=== PATIENT | female | born 1945 | race Caucasian/White ===

== ENCOUNTER 2017-04-17 21:28 | Inpatient (IN) | payer MEDICARE, OTHER ==
[~2017-04-17] VITALS: Ht 154.9 cm; Wt 96.0 kg
[2017-04-17 22:40] LABS: Basophils # (auto) 0 uL; Basophils % (auto) 0.1 % (0.0-2.0); Eosinophils # (auto) 0 uL; Hematocrit 43.7 % (36.0-46.0); Hemoglobin 14.2 g/dL (12.2-16.2); Lymphocytes # (auto) 1.2 uL; Lymphocytes % (auto) 19.9 % (10.0-50.0); Mean Corpuscular Hemoglobin 31.6 pg (28.0-32.0); Mean Corpuscular Hgb Conc. 32.6 g/dL (32.0-36.0); Monocytes # (auto) 0.3 uL; Neutrophils # (auto) 4.6 uL; Nucleated Red Blood Cells % 0.8 %; Platelet Count (auto) 146 10^3/uL (140-450); Red Blood Cells 4.51 10^6/uL (4.0-5.20); Red Cell Distribution Width 16.5 % (11.8-14.3); White Blood Cell 6.2 10^3/uL (4.4-10.8)
[2017-04-17 22:47] LABS: INR 1.19 (0.9-1.15); Partial Thromboplastin Time 20.3 sec (22.64-33.71)
[2017-04-17 22:48] LABS: Anion Gap 10 (5-15); Blood Urea Nitrogen 14 mg/dL (7-18); Carbon Dioxide 19 mmol/L (21-32); Chloride 106 mmol/L (98-107); Glucose 190 mg/dL (74-106); Potassium 3.5 mmol/L (3.5-5.1); Sodium 135 mmol/L (136-145)
[2017-04-17 22:49] LABS: Alanine Aminotransferase 88 U/L (13-56); Albumin 3.1 g/dL (3.4-5.0); Alkaline Phosphatase 105 U/L (45-117); Amylase 39 U/L (25-115); Aspartate Aminotransferase 109 U/L (15-37); BUN/Creatinine Ratio 11.9; Bilirubin, Total 0.8 mg/dL (0.2-1.0); Calcium 8.3 mg/dL (8.5-10.1); GFR African American 58 mL/min; GFR Non-African American 48 mL/min; Lipase 259 U/L (73-393); Total Protein 7.6 g/dL (6.4-8.2)
[2017-04-18] MEDS ORDERED: PANTOPRAZOLE 40 MG/10 ML VIAL IV STA (03:04)
[2017-04-18] MEDS ORDERED: SODIUM CHLORIDE 0.9% 2,000 ML IV ONE (09:00)
[2017-04-18] MEDS ORDERED: NITROGLYCERIN 0.4 MG SL TAB SL PRN (09:15)
[2017-04-18] MEDS ORDERED: VANCOMYCIN PER PHARMACY 0 MG IV SCH (09:15)
[2017-04-18] MEDS ORDERED: HYDROcodone-ACET 5/325MG TAB PO PRN (09:15)
[2017-04-18] MEDS ORDERED: MORPHINE SULF INJ 2 MG/ML SYRINGE 1ML IV PRN ×2 (09:15)
[2017-04-18] MEDS ORDERED: TEMAZEPAM 15 MG CAP PO PRN (09:15)
[2017-04-18] MEDS ORDERED: DEXTROSE (50%) 50ML SYRG IV PRN (09:15)
[2017-04-18] MEDS ORDERED: ACETAMINOPHEN 325 MG TAB PO PRN (09:15)
[2017-04-18] MEDS ORDERED: ONDANSETRON HCL 4 MG/2 ML VIAL IV PRN (09:15)
[2017-04-18] MEDS: cefTRIAXone 1GM/10ml IVPUSH 10 ML IV SCH (09:21)
[2017-04-18] MEDS ORDERED: NORT25CA PO (09:43)
[2017-04-18] MEDS ORDERED: PRE5T PO (09:43)
[2017-04-18] MEDS ORDERED: TOPI50TA32 PO (09:43)
[2017-04-18] MEDS ORDERED: OMEP20CA74 PO (09:43)
[2017-04-18] MEDS ORDERED: GABA100C PO (09:43)
[2017-04-18] MEDS ORDERED: METF-370 PO (09:43)
[2017-04-18] MEDS ORDERED: MET50T PO (09:43)
[2017-04-18] MEDS ORDERED: FLUT500M2 INH (09:47)
[2017-04-18] MEDS ORDERED: [UNRECOGNIZED DRUG - OTHER] (09:47)
[2017-04-18] MEDS ORDERED: ALBUAER3 IN (09:47)
[2017-04-18] MEDS ORDERED: PROZAC 40 MG PO SCH (10:00)
[2017-04-18] MEDS ORDERED: FAMOTIDINE 20 MG TAB PO SCH (10:00)
[2017-04-18] MEDS ORDERED: ALBUTEROL SULF 2.5 MG/0.5ML(0.5%) NEB SOLN NEB PRN (10:00)
[2017-04-18] MEDS: TOPIRAMATE 25 MG TAB PO SCH ×2 (10:16→21:52)
[2017-04-18] MEDS: FLUoxetine HCL 20 MG CAP PO SCH (10:16)
[2017-04-18] MEDS: SODIUM CHLORIDE 0.9% 1,000 ML IV SCH ×2 (10:17→17:27)
[2017-04-18] MEDS: GABAPENTIN 100 MG CAP PO SCH ×2 (10:17→21:53)
[2017-04-18] MEDS: MULTIPLE VITAMIN TAB PO SCH (10:17)
[2017-04-18] MEDS: VANCOMYCIN 1GM/250ML 250 ML IV SCH (10:17)
[2017-04-18 10:18] LABS: Lactic Acid w/Reflex 2.3 mmol/L (0.4-2.0)
[2017-04-18] MEDS: METOPROLOL SUCCINATE XL 50 MG TAB PO SCH (10:19)
[2017-04-18] MEDS: IPRATROPIUM BROM 0.5 MG/2.5ML INH SOL NEB SCH ×2 (11:19→19:18)
[2017-04-18] MEDS: ALBUTEROL SULF 2.5 MG/0.5ML(0.5%) NEB SOLN NEB SCH ×2 (11:19→19:18)
[2017-04-18] MEDS: InsuLIN REG 1unit/0.01ml Soln (100units/ml) SC SCH ×3 (11:30→22:00)
[2017-04-18] MEDS: ACCU-CHEK COMFORT CURVE STRIP VI SCH ×3 (11:37→21:53)
[2017-04-18 11:48] VITALS: BP 173/73
[2017-04-18] MEDS ORDERED: cloNIDine HCL 0.1 MG TAB PO PRN (12:00)
[2017-04-18] MEDS: Boost Glucose Control 8 Ounces PO SCH ×2 (12:36→18:00)
[2017-04-18 13:35] LABS: Hematocrit 39.5 % (36.0-46.0); Hemoglobin 12.8 g/dL (12.2-16.2)
[2017-04-18 14:02] LABS: Lactic Acid w/Reflex 2.4 mmol/L (0.4-2.0)
[2017-04-18 15:46] LABS: Urine Bacteria NONE SEEN /hpf (None Seen); Urine Blood Negative /uL (Negative); Urine Specific Gravity 1.005 (1.001-1.035); Urine WBC 13 /hpf (0 - 5)
[2017-04-18 17:00] VITALS: BP 171/63
[2017-04-18] MEDS: PANTOPRAZOLE 40 MG/10 ML VIAL IV SCH (21:53)
[2017-04-18] MEDS: NORTRIPTYLINE HCL 25 MG CAP PO SCH (21:53)
[2017-04-18 22:00] VITALS: BP 115/43
[2017-04-19] MEDS: IPRATROPIUM BROM 0.5 MG/2.5ML INH SOL NEB SCH ×4 (00:52→18:41)
[2017-04-19] MEDS: ALBUTEROL SULF 2.5 MG/0.5ML(0.5%) NEB SOLN NEB SCH ×4 (00:52→18:42)
[2017-04-19 04:47] VITALS: BP 121/55
[2017-04-19] MEDS: SODIUM CHLORIDE 0.9% 1,000 ML IV SCH ×3 (06:14→13:56)
[2017-04-19] MEDS: ACCU-CHEK COMFORT CURVE STRIP VI SCH ×5 (06:15→22:26)
[2017-04-19] MEDS: InsuLIN REG 1unit/0.01ml Soln (100units/ml) SC SCH ×4 (06:15→22:26)
[2017-04-19 08:00] VITALS: BP 134/52
[2017-04-19] MEDS ORDERED: MIDAZOLAM HCL 5 MG/ML-1ML VIAL ONE (08:13)
[2017-04-19] MEDS ORDERED: SODIUM CHLORIDE LOCK 10 ML ONE (08:13)
[2017-04-19] MEDS ORDERED: LIDOCAINE VISCOUS 2% 15ML UD ONE (08:13)
[2017-04-19] MEDS ORDERED: fentaNYL CITRATE 100 MCG/2 ML VL ONE (08:14)
[2017-04-19] MEDS ORDERED: diphenhdrAMINE HCL 50 MG/1 ML VL ONE (08:14)
[2017-04-19] MEDS ORDERED: FLUMAZENIL 0.1 MG/ML INJ 10ML MDV IV ONE (08:15)
[2017-04-19] MEDS ORDERED: NALOXONE HCL 0.4 MG/ML VIAL ONE (08:15)
[2017-04-19 08:53] VITALS: BP 134/52
[2017-04-19] MEDS: Boost Glucose Control 8 Ounces PO SCH ×3 (09:06→17:22)
[2017-04-19] MEDS: METOPROLOL SUCCINATE XL 50 MG TAB PO SCH (09:20)
[2017-04-19] MEDS: cefTRIAXone 1GM/10ml IVPUSH 10 ML IV SCH (09:20)
[2017-04-19] MEDS: FLUoxetine HCL 20 MG CAP PO SCH (09:23)
[2017-04-19] MEDS: TOPIRAMATE 25 MG TAB PO SCH ×2 (09:23→22:26)
[2017-04-19] MEDS: MULTIPLE VITAMIN TAB PO SCH (09:23)
[2017-04-19] MEDS: PANTOPRAZOLE 40 MG/10 ML VIAL IV SCH (09:23)
[2017-04-19] MEDS: GABAPENTIN 100 MG CAP PO SCH ×2 (09:23→22:25)
[2017-04-19] MEDS: VANCOMYCIN 1GM/250ML 250 ML IV SCH (10:27)
[2017-04-19 12:19] VITALS: BP 151/69
[2017-04-19 16:48] VITALS: BP 152/78
[2017-04-19 22:14] VITALS: BP 138/64
[2017-04-19] MEDS: PANTOPRAZOLE 40 MG TAB PO SCH (22:26)
[2017-04-19] MEDS: NORTRIPTYLINE HCL 25 MG CAP PO SCH (22:26)
[2017-04-20] MEDS: SODIUM CHLORIDE 0.9% 1,000 ML IV SCH
[2017-04-20] MEDS: IPRATROPIUM BROM 0.5 MG/2.5ML INH SOL NEB SCH ×3 (00:56→12:00)
[2017-04-20] MEDS: ALBUTEROL SULF 2.5 MG/0.5ML(0.5%) NEB SOLN NEB SCH ×3 (00:56→12:00)
[2017-04-20 04:28] VITALS: BP 137/67
[2017-04-20] MEDS: ACCU-CHEK COMFORT CURVE STRIP VI SCH ×2 (06:54→11:36)
[2017-04-20] MEDS: InsuLIN REG 1unit/0.01ml Soln (100units/ml) SC SCH ×2 (06:55→11:36)
[2017-04-20 07:46] LABS: Basophils # (auto) 0 uL; Basophils % (auto) 0.3 % (0.0-2.0); Eosinophils # (auto) 0.1 uL; Eosinophils % (auto) 1.7 % (0.0-7.0); Hematocrit 37.9 % (36.0-46.0); Hemoglobin 12.6 g/dL (12.2-16.2); Lymphocytes # (auto) 1.9 uL; Lymphocytes % (auto) 50.2 % (10.0-50.0); Mean Corpuscular Hemoglobin 31.4 pg (28.0-32.0); Mean Corpuscular Hgb Conc. 33.3 g/dL (32.0-36.0); Mean Corpuscular Volume 94.3 fL (80.0-100.0); Monocytes # (auto) 0.3 uL; Monocytes % (auto) 7.3 % (0.0-12.0); Neutrophils # (auto) 1.6 uL; Neutrophils % (auto) 40.5 % (37.0-80.0); Nucleated Red Blood Cells % 0.1 %; Red Blood Cells 4.02 10^6/uL (4.0-5.20); Red Cell Distribution Width 16.5 % (11.8-14.3); White Blood Cell 3.8 10^3/uL (4.4-10.8)
[2017-04-20 07:58] LABS: Albumin 2.4 g/dL (3.4-5.0); BUN/Creatinine Ratio 13.3; Calcium 8.1 mg/dL (8.5-10.1)
[2017-04-20] MEDS: Boost Glucose Control 8 Ounces PO SCH ×2 (07:59→12:22)
[2017-04-20 08:00] VITALS: BP 146/68
[2017-04-20 08:01] LABS: Bilirubin, Total 0.9 mg/dL (0.2-1.0); Total Protein 5.6 g/dL (6.4-8.2)
[2017-04-20 09:00] VITALS: BP 146/68
[2017-04-20] MEDS: cefTRIAXone 1GM/10ml IVPUSH 10 ML IV SCH (09:03)
[2017-04-20] MEDS: TOPIRAMATE 25 MG TAB PO SCH (09:03)
[2017-04-20] MEDS: PANTOPRAZOLE 40 MG TAB PO SCH (09:04)
[2017-04-20] MEDS: METOPROLOL SUCCINATE XL 50 MG TAB PO SCH (09:04)
[2017-04-20] MEDS: MULTIPLE VITAMIN TAB PO SCH (09:04)
[2017-04-20] MEDS: FLUoxetine HCL 20 MG CAP PO SCH (09:04)
[2017-04-20] MEDS: GABAPENTIN 100 MG CAP PO SCH (09:04)
[2017-04-20 09:34] LABS: Hepatitis B Surface Antibody Negative
[2017-04-20 09:45] LABS: Hepatitis B Surface Antigen Negative (Negative)
[2017-04-20 10:08] LABS: Hepatitis C Antibody Negative (Negative)
[2017-04-20 10:11] LABS: Hepatitis A Total Antibody Positive; Hepatitis B Core Total AB Negative
[2017-04-20] MEDS ORDERED: POTASSIUM CHL 20 Meq TABLET PO ONE (10:15)
[2017-04-20] MEDS ORDERED: PANT40TA2 PO (10:48)
[2017-04-20] MEDS ORDERED: POTA10TA34 PO (10:48)
[2017-04-20] MEDS ORDERED: FURO20TA PO (10:48)
[2017-04-20 11:09] LABS: % Iron Saturation 34.5 % (15-50)
[2017-04-20 11:16] LABS: Platelet Count (auto) 84 10^3/uL (140-450)
[2017-04-20 11:20] VITALS: BP 146/68
[2017-04-20 13:03] VITALS: BP 141/66
== END 2017-04-20 13:25 | disposition home or self-care (01) | DRG 377 ==
LOC: ER 21:28 → TELE 21:29 → ER 04-18 15:08 → TELE-CENTR 04-18 16:08
PROVIDERS: ADMIT Nurse Practitioner; ATTEND Internal Medicine
PROC: 0DB68ZX Excision of Stomach, Via Natural or Artificial Opening Endoscopic, Diagnostic (ICD-10-PCS; principal; 2017-04-19 11:00)
PROC: 0W9G30Z Drainage of Peritoneal Cavity with Drainage Device, Percutaneous Approach (ICD-10-PCS; 2017-04-20)
DX: K29.71 Gastritis, unspecified, with bleeding (principal); J18.9 Pneumonia, unspecified organism; N17.0 Acute kidney failure with tubular necrosis; E44.0 Moderate protein-calorie malnutrition; D68.9 Coagulation defect, unspecified; E11.21 Type 2 diabetes mellitus with diabetic nephropathy; E11.22 Type 2 diabetes mellitus with diabetic chronic kidney disease; E83.51 Hypocalcemia; E87.1 Hypo-osmolality and hyponatremia; J45.901 Unspecified asthma with (acute) exacerbation; R18.8 Other ascites; Z68.41 Body mass index [BMI] 40.0-44.9, adult; N18.3 Chronic kidney disease, stage 3 (moderate); E78.5 Hyperlipidemia, unspecified; E86.0 Dehydration; E66.9 Obesity, unspecified; R07.89 Other chest pain; E87.6 Hypokalemia; I12.9 Hypertensive chronic kidney disease with stage 1 through stage 4 chronic kidney disease, or unspecified chronic kidney disease; J84.112 Idiopathic pulmonary fibrosis; K74.60 Unspecified cirrhosis of liver; Z83.3 Family history of diabetes mellitus; Z86.73 Personal history of transient ischemic attack (TIA), and cerebral infarction without residual deficits; Z90.710 Acquired absence of both cervix and uterus; Z88.2 Allergy status to sulfonamides; Z90.49 Acquired absence of other specified parts of digestive tract
CPT/HCPCS: 36415; 43239; 49083; 71046; 74176; 76700; 76942; 80053; 81001; 81025; 82150; 82390; 82962; 83036; 83540; 83550; 83605; 83690; 83735; 84484; 85014; 85018; 85025; 85610; 85730; 86038; 86704; 86706; 86708; 86803; 87040; 87045; 87086; 87205; 87340; 87493; 87899; 88341; 89051; 93005; 94640; 94761; 96361; 96365; 96375; C9113; J1815; J2250

== ENCOUNTER → 2017-05-04 | Outpatient (CLI) | payer OTHER ==
[~2017-05-04] MED LIST: ALBUAER3 IN; FLUT500M2 INH; FURO20TA PO; GABA100C PO; MET50T PO; METF-370 PO; NORT25CA PO; PANT40TA2 PO; POTA10TA34 PO; PRE5T PO; TOPI50TA32 PO; [UNRECOGNIZED DRUG - OTHER]
[2017-05-04 17:06] LABS: BUN/Creatinine Ratio 9.3; Calcium 8.8 mg/dL (8.5-10.1); Potassium 3.7 mmol/L (3.5-5.1)
== END | disposition home or self-care (01) ==
LOC: LAB 15:50
PROVIDERS: ATTEND Internal Medicine Gastroenterology
DX: K92.1 Melena (principal)
CPT/HCPCS: 36415; 80048; 82105

== ENCOUNTER → 2017-07-03 | Outpatient (CLI) | payer OTHER ==
[2017-07-03 14:10] LABS: Albumin 3.9 g/dL (3.4-5.0); BUN/Creatinine Ratio 11.7; Bilirubin, Total 0.7 mg/dL (0.2-1.0); Calcium 9.3 mg/dL (8.5-10.1); Potassium 4.8 mmol/L (3.5-5.1); Total Protein 8.1 g/dL (6.4-8.2)
== END | disposition home or self-care (01) ==
LOC: LAB 13:02
PROVIDERS: ATTEND Family Medicine
DX: I10 Essential (primary) hypertension (principal); E11.8 Type 2 diabetes mellitus with unspecified complications
CPT/HCPCS: 36415; 80053; 80061; 82043; 83036

== ENCOUNTER → 2018-02-01 | Outpatient (CLI) | payer OTHER ==
[~2018-02-01] MED LIST changes: -POTA10TA34 PO; +POTA1TAB61 PO
[2018-02-01 14:20] LABS: Basophils # (auto) 0 uL; Basophils % (auto) 0.9 % (0.0-2.0); Eosinophils # (auto) 0.1 uL; Eosinophils % (auto) 2.8 % (0.0-7.0); Hematocrit 32.7 % (36.0-46.0); Hemoglobin 10.9 g/dL (12.2-16.2); Lymphocytes # (auto) 2.1 uL; Lymphocytes % (auto) 39.4 % (10.0-50.0); Mean Corpuscular Hemoglobin 32.8 pg (28.0-32.0); Mean Corpuscular Hgb Conc. 33.4 g/dL (32.0-36.0); Mean Corpuscular Volume 98.2 fL (80.0-100.0); Monocytes # (auto) 0.3 uL; Monocytes % (auto) 5.8 % (0.0-12.0); Neutrophils # (auto) 2.7 uL; Neutrophils % (auto) 51.1 % (37.0-80.0); Platelet Count (auto) 92 10^3/uL (140-450); Red Blood Cells 3.33 10^6/uL (4.0-5.20); Red Cell Distribution Width 13.8 % (11.8-14.3); White Blood Cell 5.2 10^3/uL (4.4-10.8)
[2018-02-01 14:27] LABS: Urine Bacteria FEW /hpf (None Seen); Urine Blood TRACE /uL (Negative); Urine Specific Gravity 1.015 (1.001-1.035); Urine WBC 328 /hpf (0 - 5); Urine WBC Clumps PRESENT /hpf (None Seen)
[2018-02-01 14:35] LABS: Potassium 4.9 mmol/L (3.5-5.1)
[2018-02-01 14:42] LABS: Albumin 4.1 g/dL (3.4-5.0); BUN/Creatinine Ratio 15.1; Bilirubin, Total 0.5 mg/dL (0.2-1.0); Calcium 9.6 mg/dL (8.5-10.1)
== END | disposition home or self-care (01) ==
LOC: LAB 13:43
PROVIDERS: ATTEND Nurse Practitioner
DX: E78.5 Hyperlipidemia, unspecified (principal); E11.8 Type 2 diabetes mellitus with unspecified complications; Z79.899 Other long term (current) drug therapy
CPT/HCPCS: 36415; 80053; 80061; 81001; 82043; 82306; 83036; 84443; 85025; 85652

== ENCOUNTER → 2018-02-20 | Outpatient (CLI) | payer OTHER ==
[2018-02-20 12:30] LABS: Basophils # (auto) 0.1 uL; Basophils % (auto) 1.8 % (0.0-2.0); Eosinophils # (auto) 0.3 uL; Hematocrit 30.5 % (36.0-46.0); Hemoglobin 10.3 g/dL (12.2-16.2); Lymphocytes # (auto) 1.9 uL; Lymphocytes % (auto) 32.1 % (10.0-50.0); Mean Corpuscular Hemoglobin 33.2 pg (28.0-32.0); Mean Corpuscular Hgb Conc. 33.6 g/dL (32.0-36.0); Mean Corpuscular Volume 98.7 fL (80.0-100.0); Monocytes # (auto) 0.4 uL; Monocytes % (auto) 6.1 % (0.0-12.0); Neutrophils # (auto) 3.2 uL; Platelet Count (auto) 89 10^3/uL (140-450); Red Blood Cells 3.09 10^6/uL (4.0-5.20); Red Cell Distribution Width 13.7 % (11.8-14.3); White Blood Cell 5.9 10^3/uL (4.4-10.8)
[2018-02-20 12:45] LABS: Urine Bacteria FEW /hpf (None Seen); Urine Blood Negative /uL (Negative); Urine Hyaline Cast FEW /lpf (0 - 2); Urine Specific Gravity 1.014 (1.001-1.035); Urine WBC 66 /hpf (0 - 5); Urine WBC Clumps PRESENT /hpf (None Seen)
[2018-02-20 13:35] LABS: Albumin 4.1 g/dL (3.4-5.0); BUN/Creatinine Ratio 12.7; Calcium 9.1 mg/dL (8.5-10.1); Potassium 4.5 mmol/L (3.5-5.1)
[2018-02-20 13:38] LABS: Bilirubin, Total 0.7 mg/dL (0.2-1.0); Total Protein 7.5 g/dL (6.4-8.2)
== END | disposition home or self-care (01) ==
LOC: LAB 11:42
PROVIDERS: ATTEND Nurse Practitioner
DX: E78.5 Hyperlipidemia, unspecified (principal)
CPT/HCPCS: 36415; 80053; 81001; 85025